=== PATIENT | male | born 1970 | race Caucasian/White ===

== ENCOUNTER 2022-07-16 19:35 | Emergency (ER) | payer SELFPAY ==
--- NOTE | ~2022-07-16 | XR_ITS ---
EXAMINATION: XR finger 1st RT min 2V INDICATION: Right thumb dislocation, post reduction TECHNIQUE: Three views of the right first finger are obtained. COMPARISON: 2121 hours FINDINGS: The previously described dorsal dislocation of the first distal phalanx with respect to the proximal phalanx is reduced. Alignment is anatomic. There is a small linear fracture fragment in the interphalangeal joint space. There is an acute, traumatic, oblique intra-articular fracture at the l ateral base of the first proximal phalanx. There is soft tissue swelling of the finger. No additional fracture is identified. IMPRESSION: 1. Reduced dorsal dislocation of the first distal phalanx with small linear fracture fragment in the interphalangeal joint. 2. Acute intra-articular fracture at the lateral base of the first proximal phalanx. Reviewed, dictated and finalized at location A. IMPRESSION: 1. Reduced dorsal dislocation of the first distal phalanx with small linear fra cture fragment in the interphalangeal joint. 2. Acute intra-articular fracture at the lateral base of the first proximal pha lanx.
--- NOTE | ~2022-07-16 | XR_ITS ---
XR finger 1st RT min 2V 07/16/2022 21:30 Indication: Right first finger pain after injury Procedure: 4 views right first finger Comparison: No prior studies for comparison. Findings: There is dorsal dislocation of the first finger at the interphalangeal joint. No fracture i dentified. Moderate soft tissue swelling. Surrounding osseous structures are unremarkable. Impression: 1: Dorsal dislocation of the first finger at the interphalangeal joint. Reviewed, dictated and finalized at location A. Impression: 1: Dorsal dislocation of the first finger at the interphalangeal joint.
--- NOTE | ~2022-07-16 | CT_ITS ---
EXAMINATION: CT BRAIN W/O DATE: 07/16/2022 21:49 INDICATION: Head injury. TECHNIQUE: Computed tomography (CT) of the head was performed without intravenous contrast. The dose- length product was 681.00 mGy-cm. Automated exposure control and iterative reconstruction technique w ere employed. COMPARISON: No prior studies for comparison. FINDINGS: Normal brain parenchymal volume for age. Normal wilson-white differentiation. No acute intrac ranial hemorrhage, infarction, mass or mass effect. No ventriculomegaly or midline shift. Midline sagittal images demonstrate a normal corpus callosum, c raniovertebral junction and sella turcica. Basilar cisterns are patent. Paranasal sinuses and mastoids are pneumatized. No depressed skull fractures. IMPRESSION: 1. No acute intracranial abnormality. Reviewed, dictated and finalized at location A.
[2022-07-16 20:20] VITALS: BP 155/86; PULSE 87; RESP 22; TEMP 36.6; O2SAT 100
[2022-07-16] MEDS: TETANUS,DIPHTHERIA,AC PERTUSSIS ADULT (0.5 ML) BOOSTRIX IM (22:46)
--- NOTE | 2022-07-16 23:20 | PC.NURSE ---
Assumed care of pt at this time. Pt alert and upright on stretcher, requesting water.
--- NOTE | 2022-07-16 23:21 | ED.WOUNDLAC ---
HPI - Wound/Laceration General Chief Complaint: Fall <JEANA Harding Last Filed: 07/17/22 00:03> Stated Complaint: laceration to thumb <JEANA Harding Last Filed: 07/17/22 00:03> Time Seen by Provider: 07/16/22 21:21 <JEANA Harding Last Filed: 07/17/22 00:03> Source: patient <JEANA Harding Last Filed: 07/17/22 00:03> Mode of arrival: ambulatory <JEANA Harding Last Filed: 07/17/22 00:03> Limitations: no limitations <JEANA Harding Last Filed: 07/17/22 00:03> History of Present Illness HPI narrative: This is a 51-year-old male that presents to the emergency department for a laceration of the right thumb sustained just prior to arrival. Reports he was getting out of his truck and slipped and fell. He is unsure when he injured his thumb on. He did hit his head on the tire of the car next to him. He did not lose consciousness. He is unsure of his last tetanus vaccine. Reports decreased range of motion in the thumb. Denies numbness. <Nataly Degroot PA-C - Last Filed: 07/17/22 00:03> Related Data Allergies/Adverse Reactions: Allergies Allergy/AdvReac Type Severity Reaction Status Date / Time No Known Allergies Allergy Verified 07/16/22 21:51 <Nataly Degroot PA-C - Last Filed: 07/17/22 00:03> Review of Systems Review of Systems: CONSTITUTIONAL: Denies fever EYES: Denies visual changes GASTROINTESTINAL: Denies vomiting MUSCULOSKELETAL: Reports joint pain, and myalgia. NEUROLOGIC: Denies numbness <JEANA Harding Last Filed: 07/17/22 00:03> All systems reviewed & are unremarkable except as noted in HPI and below <JEANA Harding Last Filed: 07/17/22 00:03> [facility] Past Medical History Medical History: Medical History (Updated 07/17/22 @ 00:00 by Nataly Degroot PA-C) History of hyperlipidemia History of hypertension <Nataly Degroot PA-C - Last Filed: 07/17/22 00:03> Social History Social History: Social History (Updated 07/16/22 @ 23:22 by Nataly Degroot PA-C) Substance use: never <Nataly Degroot PA-C - Last Filed: 07/17/22 00:03> Exam Narrative: GENERAL: Well-appearing, well-nourished, and in no acute distress. HEAD: Normocephalic, atraumatic. EYES: PERRLA and EOMI. ENT: Nares clear, no rhinorrhea or epistaxis. Mucous membranes moist. Oropharynx without tonsillar hypertrophy exudate or other lesions. Bilateral TMs pearly wilson non-bulging NECK: Supple. No adenopathy or masses. No midline spinal tenderness CHEST: Clear to auscultation. No respiratory distress. No wheezes rales or rhonchi HEART: Regular rate and rhythm. No murmur heard. Normal peripheral pulses. EXTREMITIES: Normal range of motion, except decreased active ROM in the right finger finger. Normal radial pulse. Normal sensation. 1.5cm linear laceration into subcutaneous tissue to the right thumb PIP joint palmar surface SKIN: Warm, dry, no rash. NEURO: No focal deficits. Alert and oriented x3. Cranial nerves II through XII grossly intact PSYCH: Normal mood and affect <Nataly Degroot PA-C - Last Filed: 07/17/22 00:03> Course CLINICAL VETERINARIAN/PA Physician Supervision For this patient encounter, I reviewed the CLINICAL VETERINARIAN or PA documentation, treatment plan, and medical decision making; and I had [id number] time with this patient. Assisted with the reduction of the right thumb. Postreduction x-rays confirmed reduction. <Evangelista Aguilar MD - Last Filed: 07/17/22 01:04> Vital Signs Vital signs: Vital Signs Temperature 98 F 07/16/22 20:20 Pulse Rate 87 07/16/22 20:20 Respiratory Rate 22 H 07/16/22 20:20 Blood Pressure 155/86 H 07/16/22 20:20 Pulse Oximetry 100 07/16/22 20:20 Oxygen Delivery Room Air 07/16/22 20:20 Temperature 98 F 07/16/22 20:20 Pulse Rate 87 07/16/22 20:20 Respiratory Rate 22 H 07/16/22 20:20 Blood Pressure 155/86 H 07/16/22 20:20 Pulse Oximetry 100
== END 2022-07-17 00:37 | disposition home or self-care (01) ==
PROVIDERS: Emergency Provider Emergency Medicine
DX: S62.511A Displaced fracture of proximal phalanx of right thumb, initial encounter for closed fracture (principal); S61.011A Laceration without foreign body of right thumb without damage to nail, initial encounter; S09.90XA Unspecified injury of head, initial encounter; Z23 Encounter for immunization; E78.5 Hyperlipidemia, unspecified; I10 Essential (primary) hypertension; W17.89XA Other fall from one level to another, initial encounter
CPT/HCPCS: 26765; 26770; 70450; 73140; 90471; 90715; 99285